=== PATIENT | female | born 1965 | race Caucasian/White ===

== ENCOUNTER → 2016-11-21 | Outpatient (CLI) | payer BC ==
[~2016-11-21] MED LIST: AMOX-CLAV PO; ANSHCCR PR; ASPCH81X PO; ATOR-22 PO; CLON1TAB3 PO; DIVA500T59 PO; FLUV50TA2 PO; IBUP-103 PO; LORA-741 PO; MIRT30TA PO; QUET1TAB7 PO; RIZA10TA18 PO; TOPI25TA55 PO; TOPI50TA25 PO
[2016-11-21 12:20] LABS: BASO % 0.5 %; BASO ABS # 0.04 K/uL (0-0.2); COMPLETE YES; EOS % 0.8 %; HEMATOCRIT 47.3 % (37-47); IG% 0.2 %; LYMPH % 45.6 %; LYMPH ABS # 3.88 K/uL (1.2-3.4); MEAN CELL VOLUME 95.6 fL (80-100); MEAN CORPUSCULAR HEMOGLOBIN 32.7 pg (25-34); MEAN CORPUSCULAR HGB CONC 34.2 g/dl (32-36); MEAN PLATELET VOLUME 10.5 fL (7.4-10.4); MONO % 5.3 %; NEUT % 47.6 %; PLATELET COUNT 222 K/uL (130-400); RED BLOOD COUNT 4.95 M/uL (4.2-5.4); WHITE BLOOD COUNT 8.51 K/uL (4.8-10.8)
[2016-11-21 13:59] LABS: ALKALINE PHOSPHATASE 102 U/L (45-117); ALT/SGPT 14 U/L (12-78); AST/SGOT 8 U/L (15-37)
== END | disposition home or self-care (01) ==
LOC: C.LAB1850 11:18
PROVIDERS: ATTEND Psychiatry & Neurology Psychiatry
DX: F31.9 Bipolar disorder, unspecified (principal)

== ENCOUNTER → 2017-04-09 | Day surgery (SDC) | payer BC ==
[2017-03-27 11:22] VITALS: BMI 24.0
[~2017-04-09] VITALS: Ht 162.6 cm; Wt 65.5 kg
[~2017-04-09] MED LIST changes: -AMOX-CLAV PO; +LIDOCAINE HCL 2% 2 ML VIAL (20MG/ML) ONE; +MIDAZOLAM HCL 1 MG/ML 2ML VIAL ONE; +ONDANSETRON INJ 2 MG/ML 2 ML VIAL ONE; +PROPOFOL IV EMULSION 10 MG/ML 20 ML VIAL IV ONE; +SODIUM CHLORIDE 0.9% 500ML 500 ML IV ONE; -TOPI25TA55 PO
[2017-04-09 13:28] VITALS: Ht 162.6 cm; Wt 65.5 kg
[2017-04-09 13:33] VITALS: TEMP 36.4
--- NOTE | 2017-04-09 14:14 | Endo History and Physical ---
History & Physical Date of Service: Apr 09, 2017. Chief Complaint: Rectal bleeding Referring Physician: Dr. Armando History of Present Illness rectal bleeding, no prior colon, painless rectal bleeding Past Surgical History Hx Cardiac Surgery: No Hx Internal Defibrillator: No Hx Pacemaker: No Hx Abdominal Surgery: Yes (C SECTION) Hx of Implantable Prosthesis: No Hx Post-Op Nausea and Vomiting: No Hx Cancer Surgery: No Hx Thoracic Surgery: No Hx Orthopedic: No Hx Urinary Tract Surgery: No Family History None Social History Smoking Status: Current Every Day Smoker Hx Substance Use: No Hx Alcohol Use: No Allergies Coded Allergies: Tramadol (Verified Allergy, Intermediate, sick, hot, 03/27/17) Naproxen (Verified Allergy, Mild, N/V, 03/27/17) Lamotrigine (Verified Allergy, Unknown, RASH, 03/27/17) Trazodone (Verified Allergy, Unknown, "Sick", 03/27/17) Codeine (Verified Adverse Reaction, Intermediate, NAUSEA AND VOMITING, ) Current Medications Reported Home Medications Medications Dose Route/Sig Max Daily Dose Days Date Category Dose Instructions Aspirin Chewable (Aspirin) 81 Mg Chew 81 Mg PO QAM 03/27/17 Reported Lipitor (Atorvastatin Calcium) 20 Mg Tab 20 Mg PO HS 03/27/17 Reported Topiramate 50 Mg Tab 50 Mg PO HS 03/27/17 Reported Ativan (Lorazepam) 0.5 Mg Tab 0.5 Mg PO DAILY PRN 06/10/14 Reported Maxalt (Rizatriptan Benzoate) 10 Mg Tab 10 Mg PO DAILY PRN 06/10/14 Reported Advil (Ibuprofen) 200 Mg Tab 400-600 Mg PO BID 06/10/14 Reported Seroquel (Quetiapine Fumarate) 25 Mg Tab 25 Mg PO HS 06/10/14 Reported Remeron (Mirtazapine) 30 Mg Tab 45 Mg PO HS 06/10/14 Reported Luvox (Fluvoxamine Maleate) 50 Mg Tab 25 Mg PO HS 06/10/14 Reported Depakote (Divalproex Sodium) 500 Mg Tab 500 Mg PO HS 06/10/14 Reported Klonopin (Clonazepam) 1 Mg Tab 1.5 Mg PO HS 06/10/14 Reported 1 and 1/5 1mg tablets Vital Signs Weight (Kilograms): 65.45 Height (Feet): 5 Height (Inches): 4 Date Time Temp Pulse Resp B/P (MAP) Pulse Ox O2 Delivery O2 Flow Rate FiO2 04/09/17 13:33 36.4 84 20 127/59 (81) 96 Room Air Physical Exam AAOx3 Nls1s2 Lungs CTA Abd soft NT/ND + BS - CCE Assessment and Plan colonoscopy
--- NOTE | 2017-04-09 14:52 | Discharge Instructions ---
Endoscopy Patient Instructions Date / Procedure(s) Performed Apr 09, 2017. Colonoscopy Allergy Information Coded Allergies: Tramadol (Verified Allergy, Intermediate, sick, hot, 03/27/17) Naproxen (Verified Allergy, Mild, N/V, 03/27/17) Lamotrigine (Verified Allergy, Unknown, RASH, 03/27/17) Trazodone (Verified Allergy, Unknown, "Sick", 03/27/17) Codeine (Verified Adverse Reaction, Intermediate, NAUSEA AND VOMITING, ) Discharge Date / Findings Apr 09, 2017. polyps, diverticulosis. hemorrhoids Medication Instructions Restart Stopped Medication(s): Reported Home Medications Medications Dose Route/Sig Max Daily Dose Days Date Category Dose Instructions Aspirin Chewable (Aspirin) 81 Mg Chew 81 Mg PO QAM 03/27/17 Reported Lipitor (Atorvastatin Calcium) 20 Mg Tab 20 Mg PO HS 03/27/17 Reported Topiramate 50 Mg Tab 50 Mg PO HS 03/27/17 Reported Ativan (Lorazepam) 0.5 Mg Tab 0.5 Mg PO DAILY PRN 06/10/14 Reported Maxalt (Rizatriptan Benzoate) 10 Mg Tab 10 Mg PO DAILY PRN 06/10/14 Reported Advil (Ibuprofen) 200 Mg Tab 400-600 Mg PO BID 06/10/14 Reported Seroquel (Quetiapine Fumarate) 25 Mg Tab 25 Mg PO HS 06/10/14 Reported Remeron (Mirtazapine) 30 Mg Tab 45 Mg PO HS 06/10/14 Reported Luvox (Fluvoxamine Maleate) 50 Mg Tab 25 Mg PO HS 06/10/14 Reported Depakote (Divalproex Sodium) 500 Mg Tab 500 Mg PO HS 06/10/14 Reported Klonopin (Clonazepam) 1 Mg Tab 1.5 Mg PO HS 06/10/14 Reported 1 and 1/5 1mg tablets Reported Home Medications Medications Dose Route/Sig Max Daily Dose Days Date Category Dose Instructions Aspirin Chewable (Aspirin) 81 Mg Chew 81 Mg PO QAM 03/27/17 Reported Lipitor (Atorvastatin Calcium) 20 Mg Tab 20 Mg PO HS 03/27/17 Reported Topiramate 50 Mg Tab 50 Mg PO HS 03/27/17 Reported Ativan (Lorazepam) 0.5 Mg Tab 0.5 Mg PO DAILY PRN 11/7/14 Reported Maxalt (Rizatriptan Benzoate) 10 Mg Tab 10 Mg PO DAILY PRN 06/10/14 Reported Advil (Ibuprofen) 200 Mg Tab 400-600 Mg PO BID 06/10/14 Reported Seroquel (Quetiapine Fumarate) 25 Mg Tab 25 Mg PO HS 06/10/14 Reported Remeron (Mirtazapine) 30 Mg Tab 45 Mg PO HS 06/10/14 Reported Luvox (Fluvoxamine Maleate) 50 Mg Tab 25 Mg PO HS 06/10/14 Reported Depakote (Divalproex Sodium) 500 Mg Tab 500 Mg PO HS 06/10/14 Reported Klonopin (Clonazepam) 1 Mg Tab 1.5 Mg PO HS 06/10/14 Reported 1 and 1/5 1mg tablets Provider Instructions Activity Restrictions - No exercising or heavy lifting for 24 hours. - Do not drink alcohol the day of the procedure. - Do not drive a car or operate machinery until the day after the procedure. - Do not make any important decisions or sign important papers in 24 hours after the procedure. Following Day: - Return to full activity which may include returning to work/school. Diet Start your diet with liquids and light foods (jello, soup, juice, toast). Then eat your usual diet if not nauseated. Treatment For Common After Affects For mild abdominal pain, bloating, or excessive gas: - Rest - Eat lightly - Lie on right side Follow-Up Information Follow-up with Dr. Armando as scheduled Anesthesia Information What You Should Know You have had a procedure that required some medicine to reduce anxiety and discomfort. This treatment is called moderate sedation. After receiving the treatment, you may be sleepy, but you will be able to breathe on your own. The effects of the treatment may last for several hours. Follow these instructions along with Activity/Diet recommendations noted above: * Do NOT do anything where dizziness or clumsiness would be dangerous. * Rest quietly at home today, then you can be up and about tomorrow. * Have a responsible person stay with you the rest of today. * You may have had an I.V. today. If so, you may take the dressing off later today. Recommendations Call your doctor if: * Trouble breathing * Continuous vomiting for more than 24 hours * Temperature above 101 degrees * Severe abdominal pain or bloating * Pain not relieved by pain medicine ordered * There is increased drainage or redness from any incision * A large amount of rectal bleeding greater than 2-3 tablespoons. (If you had a polyp/s removed or have hemorrhoids, a small amount of blood - from the rectum is to be expected.) * You have any unanswered questions or concerns. IN THE EVENT OF A SERIOUS EMERGENCY, GO TO THE NEAREST EMERGENCY ROOM Your discharge instructions were prepared by provider Joaquín Garnica. Patient Instructions Signature Page Mana Peterson Patient (or Guardian) Signature/Date: I have read and understand the instructions given to me by my caregivers. Caregiver/RN/Doctor Signature/Date: The above-named patient and/or guardian has received patient instructions on this date. + Original Patient Signature Page (only) stays with chart. Please make copy for patient.
--- NOTE | 2017-04-09 15:01 | GI REPORT ---
Procedure Date: 04/09/2017 2:00 PM Procedure: Colonoscopy Indications: Rectal bleeding Medicines: Propofol per Anesthesia Complications: No immediate complications. Estimated blood loss: Minimal. Estimated Blood Loss: Estimated blood loss was minimal. Estimated blood loss was minimal. Procedure: Pre-Anesthesia Assessment: - Prior to the procedure, a History and Physical was performed, and patient medications and allergies were reviewed. The patient's tolerance of previous anesthesia was also reviewed. The risks and benefits of the procedure and the sedation options and risks were discussed with the patient. All questions were answered, and informed consent was obtained. Prior Anticoagulants: The patient has taken no previous anticoagulant or antiplatelet agents. ASA Grade Assessment: II - A patient with mild systemic disease. After reviewing the risks and benefits, the patient was deemed in satisfactory condition to undergo the procedure. After I obtained informed consent, the scope was passed under direct vision. Throughout the procedure, the patient's blood pressure, pulse, and oxygen saturations were monitored continuously. The scope was introduced through the anus and advanced to the terminal ileum, with identification of the appendiceal orifice and IC valve. The colonoscopy was performed without difficulty. The patient tolerated the procedure well. The quality of the bowel preparation was fair. Findings: The perianal and digital rectal examinations were normal. Pertinent negatives include normal sphincter tone, no palpable rectal lesions and no anal lesion or abnormality was detected. Two sessile polyps were found in the ascending colon. The polyps were 4 to 5 mm in size. These polyps were removed with a hot snare. Resection and retrieval were complete. Estimated blood loss was minimal. Verification of patient identification for the specimen was done by the physician and digital camera technician using the patient's name and medical record number. A 3 mm polyp was found in the proximal transverse colon. The polyp was sessile. The polyp was removed with a cold biopsy forceps. Resection and retrieval were complete. Estimated blood loss was minimal. Verification of patient identification for the specimen was done by the physician and digital camera technician using the patient's name and medical record number. A 3 mm polyp was found at 30 cm proximal to the anus. The polyp was sessile. The polyp was removed with a hot snare. Resection and retrieval were complete. Estimated blood loss: none. Verification of patient identification for the specimen was done by the physician and digital camera technician using the patient's name and medical record number. A 2 mm polyp was found in the rectum. The polyp was sessile. The polyp was removed with a cold biopsy forceps. Resection and retrieval were complete. Estimated blood loss was minimal. Verification of patient identification for the specimen was done by the physician and digital camera technician using the patient's name and medical record number. Verification of patient identification for the specimen was done by the physician and digital camera technician using the patient's name and medical record number. Non-bleeding hemorrhoids were found during retroflexion. The hemorrhoids were mild. No additional abnormalities were found on retroflexion. Impression: - Two 4 to 5 mm polyps in the ascending colon, removed with a hot snare. Resected and retrieved. - One 3 mm polyp in the proximal transverse colon, removed with a cold biopsy forceps. Resected and retrieved. - One 3 mm polyp at 30 cm proximal to the anus, removed with a hot snare. Resected and retrieved. - One 2 mm polyp in the rectum, removed with a cold biopsy forceps. Resected and retrieved. Recommendation: - Discharge patient to home (ambulatory). - Patient has a contact number available for emergencies. The signs and symptoms of potential delayed complications were discussed with the patient. Return to normal activities tomorrow. Written discharge instructions were provided to the patient. - Advance diet as tolerated. - Continue present medications. - Await pathology results. - Repeat colonoscopy for surveillance based on pathology results. - Return to referring physician as previously scheduled. MD Joaquín Rod MD 04/09/2017 3:00:37 PM This report has been signed electronically. Note Initiated On: 04/09/2017 2:00 PM I attest to the content of the Intraoperative Record and orders documented therein, exceptions below
--- NOTE | 2017-04-09 15:11 | Anesthesiology Progress Note ---
Anesthesia Post Op Note Date & Time Apr 09, 2017 at 15:10 Vital Signs Pain Intensity: 0 Vital Signs Past 12 Hours Date Time Temp Pulse Resp B/P (MAP) Pulse Ox O2 Delivery O2 Flow Rate FiO2 04/09/17 14:56 68 16 100/60 (73) 95 Room Air 04/09/17 13:33 36.4 84 20 127/59 (81) 96 Room Air Notes Mental Status: alert / awake / arousable, participated in evaluation Pt Amnestic to Procedure: Yes Nausea / Vomiting: adequately controlled Pain: adequately controlled Airway Patency, RR, SpO2: stable & adequate BP & HR: stable & adequate Hydration State: stable & adequate Anesthetic Complications: no major complications apparent
[2017-04-09 15:26] VITALS: BP 116/85; PULSE 65; O2SAT 97
== END | disposition home or self-care (01) ==
LOC: C.GI 12:55
PROVIDERS: ATTEND Internal Medicine Gastroenterology
DX: D12.2 Benign neoplasm of ascending colon (principal); D12.3 Benign neoplasm of transverse colon; K62.0 Anal polyp; K62.1 Rectal polyp; K64.8 Other hemorrhoids; K62.5 Hemorrhage of anus and rectum; F17.200 Nicotine dependence, unspecified, uncomplicated; Z79.82 Long term (current) use of aspirin; Z79.899 Other long term (current) drug therapy

== ENCOUNTER → 2017-04-17 | Outpatient (CLI) | payer BC ==
[~2017-04-17] MED LIST changes: -ANSHCCR PR; -LIDOCAINE HCL 2% 2 ML VIAL (20MG/ML) ONE; -MIDAZOLAM HCL 1 MG/ML 2ML VIAL ONE; -ONDANSETRON INJ 2 MG/ML 2 ML VIAL ONE; -PROPOFOL IV EMULSION 10 MG/ML 20 ML VIAL IV ONE; -SODIUM CHLORIDE 0.9% 500ML 500 ML IV ONE
--- NOTE | 2017-04-17 11:49 | DIAGNOSTIC IMAGING REPORT ---
CHEST 2 VIEWS ROUTINE CLINICAL HISTORY: Cough. COMPARISON STUDY: Chest radiograph June 10, 2014. FINDINGS: Lung volumes are normal. No consolidation is identified. There is no pneumothorax or pleural effusion. Pulmonary vascularity is normal. Cardiomediastinal silhouette is normal. IMPRESSION: No acute cardiopulmonary findings. Electronically signed by: Maximo Martinez M.D. 04/17/2017 11:48 AM Dictated Date/Time: 04/17/2017 11:47 AM
== END | disposition home or self-care (01) ==
LOC: C.RAD1850 11:13
PROVIDERS: ATTEND Family Medicine
DX: R05 Cough (principal)

== ENCOUNTER → 2017-08-07 | Outpatient (CLI) | payer BC ==
[~2017-08-07] MED LIST changes: -CLON1TAB3 PO; +CLON1TAB4 PO
[2017-08-07 11:27] LABS: BASO % 0.3 %; BASO ABS # 0.04 K/uL (0-0.2); EOS % 0.1 %; EOS ABS # 0.01 K/uL (0-0.5); HEMATOCRIT 48.3 % (37-47); HEMOGLOBIN 17.4 g/dL (12.0-16.0); IG# 0.04 K/uL (0.00-0.02); LYMPH % 28.4 %; LYMPH ABS # 3.36 K/uL (1.2-3.4); MEAN CELL VOLUME 93.6 fL (80-100); MEAN CORPUSCULAR HEMOGLOBIN 33.7 pg (25-34); MEAN PLATELET VOLUME 11.2 fL (7.4-10.4); MONO % 11.8 %; NEUT % 59.1 %; NEUT ABS # 6.98 K/uL (1.4-6.5); PLATELET COUNT 182 K/uL (130-400); RED CELL DISTRIBUTION WIDTH CV 12.5 % (11.5-14.5); RED CELL DISTRIBUTION WIDTH SD 42.9 fL (36.4-46.3); WHITE BLOOD COUNT 11.83 K/uL (4.8-10.8)
[2017-08-07 12:31] LABS: ALBUMIN 3.5 gm/dl (3.4-5.0); ALKALINE PHOSPHATASE 101 U/L (45-117); ALT/SGPT 16 U/L (12-78); CHOLESTEROL 123 mg/dl (0-200); GLUCOSE 106 mg/dl (70-99)
[2017-08-07 12:45] LABS: AST/SGOT 11 U/L (15-37); LDL CHOLESTEROL CALCULATED 57 mg/dl; TOTAL PROTEIN 8.1 gm/dl (6.4-8.2)
== END | disposition home or self-care (01) ==
LOC: C.LAB1850 10:29
PROVIDERS: ATTEND Psychiatry & Neurology Psychiatry
DX: F31.9 Bipolar disorder, unspecified (principal); Z79.899 Other long term (current) drug therapy

== ENCOUNTER → 2017-08-11 | Outpatient (CLI) | payer BC ==
[~2017-08-11] MED LIST changes: +CLON1TAB3 PO; -CLON1TAB4 PO
--- NOTE | 2017-08-11 11:41 | DIAGNOSTIC IMAGING REPORT ---
CHEST 2 VIEWS ROUTINE HISTORY: ACUTE OBSTRUCTIVE PULMONARY DISEASE W/ ACUTE EXACERBATION COMPARISON: Chest 04/17/2017. FINDINGS: There is a new right middle lobe airspace opacity. The left lung is clear. No pleural effusions. No pneumothorax. The heart is normal in size. No pneumothorax. Suspect mild volume loss within the right hemithorax. IMPRESSION: A new right middle lobe airspace opacity with mild volume loss within the right hemithorax. Therefore, this favors partial collapse of the right middle lobe. However, a pneumonia could also a similar appearance. Given the suspected findings of partial collapse of the right middle lobe a follow-up chest CT with intravenous contrast is recommended to exclude the possibility of a central obstructing mass. Electronically signed by: Kris De La Vega M.D. 08/11/2017 11:40 AM Dictated Date/Time: 08/11/2017 11:37 AM
== END | disposition home or self-care (01) ==
LOC: C.RAD1850 11:29
PROVIDERS: ATTEND Family Medicine
DX: J44.1 Chronic obstructive pulmonary disease with (acute) exacerbation (principal)

== ENCOUNTER → 2017-08-18 | Outpatient (CLI) | payer BC ==
[~2017-08-18] MED LIST changes: +OPTIRAY 320 IV PRN
--- NOTE | 2017-08-18 16:20 | DIAGNOSTIC IMAGING REPORT ---
CHEST CT WITH CONTRAST CT DOSE: 255.11 mGycm HISTORY: Abnormal chest x-ray. Right middle Lobe opacity. TECHNIQUE: Multiaxial CT images of the chest were performed following the intravenous administration of contrast. A dose lowering technique was utilized adhering to the principles of ALARA. COMPARISON: Chest 08/11/2017. FINDINGS: The right middle lobe collapse seen on the prior study has resolved. The right middle lobe is well aerated. There is approximately 70% narrowing at the proximal 1 cm of the right middle lobe bronchus best seen on image 145 of 316. There is no surrounding soft tissue mass. Therefore, this may be congenital. Given the short resolution of the right middle lobe collapse this may have been from mucous plugging. No central obstructing masses identified. Mild emphysema. No effusions. No pneumothorax. No focal lung consolidations. No suspicious lytic or blastic osseous lesions. The visualized liver, spleen, and adrenal glands are unremarkable. The mediastinal vascular structures are within normal limits. No mediastinal or hilar lymphadenopathy. IMPRESSION: 1. Interval resolution of the right middle lobe collapse. Therefore, this favors mucous plugging. 2. However, there is approximately 70% narrowing at the proximal 1 cm of the right middle lobe bronchus which may be congenital. There is no obstructing mass identified. This should be confirmed with follow-up bronchoscopy. Electronically signed by: Kris De La Vega M.D. 08/18/2017 4:19 PM Dictated Date/Time: 08/18/2017 4:11 PM
== END ==
LOC: C.CTS 15:52
PROVIDERS: ATTEND Family Medicine
DX: R91.8 Other nonspecific abnormal finding of lung field (principal); F17.210 Nicotine dependence, cigarettes, uncomplicated

== ENCOUNTER → 2017-08-26 | Outpatient (CLI) | payer BC ==
[~2017-08-26] MED LIST changes: -OPTIRAY 320 IV PRN
--- NOTE | 2017-08-27 08:15 | PULMONARY FUNCTION TEST ---
Interpretation is based off ATS criteria. SPIROMETRY: Within normal limits. BRONCHODILATOR CHALLENGE: No significant response. LUNG VOLUMES: Within normal limits. DIFFUSION CAPACITY: Mildly reduced at 76% but correct based off alveolar volume to 97%. INTERPRETATION: Normal pulmonary function studies.
== END | disposition home or self-care (01) ==
LOC: C.RC 09:44
PROVIDERS: ATTEND Family Medicine
DX: J44.1 Chronic obstructive pulmonary disease with (acute) exacerbation (principal)

== ENCOUNTER → 2017-09-16 | Outpatient (CLI) | payer BC ==
[2017-09-16 16:48] LABS: HEMATOCRIT 45.6 % (37-47); HEMOGLOBIN 15.8 g/dL (12.0-16.0); MEAN CELL VOLUME 95.4 fL (80-100); MEAN CORPUSCULAR HEMOGLOBIN 33.1 pg (25-34); MEAN CORPUSCULAR HGB CONC 34.6 g/dl (32-36); MEAN PLATELET VOLUME 11.4 fL (7.4-10.4); PLATELET COUNT 192 K/uL (130-400); RED CELL DISTRIBUTION WIDTH SD 45.5 fL (36.4-46.3); WHITE BLOOD COUNT 9.03 K/uL (4.8-10.8)
[2017-09-16 16:56] LABS: PTT PATIENT 26.1 SECONDS (21.0-31.0)
[2017-09-16 17:04] LABS: BLOOD UREA NITROGEN 14 mg/dl (7-18); CALCIUM 8.8 mg/dl (8.5-10.1); CARBON DIOXIDE 25 mmol/L (21-32); CREATININE 0.79 mg/dl (0.60-1.20); GLUCOSE 79 mg/dl (70-99); POTASSIUM 3.9 mmol/L (3.5-5.1); SODIUM 140 mmol/L (136-145)
== END | disposition home or self-care (01) ==
LOC: C.LAB1850 15:50
PROVIDERS: ATTEND Internal Medicine Critical Care Medicine
DX: J98.59 Other diseases of mediastinum, not elsewhere classified (principal)

== ENCOUNTER → 2017-11-25 | Outpatient (CLI) | payer BC ==
[~2017-11-25] MED LIST changes: -LORA-741 PO; -QUET1TAB7 PO
--- NOTE | 2017-11-26 15:30 | MAMMOGRAPHY REPORT ---
BILATERAL DIGITAL SCREENING MAMMOGRAM TOMOSYNTHESIS WITH CAD: 11/25/2017 CLINICAL HISTORY: Routine screening. TECHNIQUE: Breast tomosynthesis in addition to standard 2D mammography was performed. Current study was also evaluated with a Computer Aided Detection (CAD) system. COMPARISON: Comparison is made to exam dated: 09/06/2009 mammogram - [facility]. BREAST COMPOSITION: There are scattered areas of fibroglandular density in both breasts. FINDINGS: The parenchymal pattern is unchanged. No developing mass, architectural distortion or clus ter of suspicious microcalcifications is seen in either breast. IMPRESSION: ACR BI-RADS CATEGORY 2: BENIGN There is no mammographic evidence of malignancy. A 1 year screening mammogram is recommended. The pa tient will receive written notification of the results. Approximately 10% of breast cancers are not detected with mammography. A negative mammographic report should not delay biopsy if a clinically suggestive mass is present. Precious Garcia M.D. ay/:11/25/2017 15:18:[address] Production: Chetan ALFARO(Alyssa)(Rubia), [facility] letter sent: Normal 1/2 BI-RADS Code: ACR BI-RADS Category 2: Benign
== END | disposition home or self-care (01) ==
LOC: C.MAMM 12:58
PROVIDERS: ATTEND Student in an Organized Health Care Education/Training Program
DX: Z12.31 Encounter for screening mammogram for malignant neoplasm of breast (principal); E28.39 Other primary ovarian failure; Z87.891 Personal history of nicotine dependence; Z78.0 Asymptomatic menopausal state

== ENCOUNTER → 2017-11-28 | Outpatient (CLI) | payer BC ==
--- NOTE | 2017-11-28 11:15 | DIAGNOSTIC IMAGING REPORT ---
PELVIC COMPLETE NON OB HISTORY: 52 years-old Female ABNORMAL UTERINE BLEEDING acute vaginal bleeding COMPARISON: None available TECHNIQUE: Multiple real-time sonographic images of the deep pelvic structures were obtained transabdominally and transvaginally assessing grayscale appearance, color and spectral flow FINDINGS: TRANSABDOMINAL: Anteflexed uterus measures 8.8 x 3.7 x 4.1 cm. Endometrium is homogeneous, 0.4 cm. Left ovary measures 1.8 x 1.8 x 1.6 cm with arterial inflow documented. Right ovary measures 1.3 x 1.7 x 1.0 cm and is unremarkable. TRANSVAGINAL: Anteflexed uterus measures 7.4 x 3.4 x 3.7 cm. The myometrium is heterogeneous. Cystic foci within the central endometrial tissues are seen measuring up to 6 mm. Questioned fibroid versus heterogeneous myometrial tissue of the lower uterine segment measures up to 1.7 cm. Intramural leiomyoma of the posterior mid uterus measures up to 9 mm nicely seen on image 61. Endometrium measures 0.6 cm. Nabothian cysts are noted. Right ovary measures 1.3 x 1.4 x 1.6 cm and is unremarkable with arterial inflow documented. Left ovary measures 2.1 x 1.2 x 1.8 cm and is also within normal limits with arterial inflow documented. Follicles are seen bilaterally. No significant free pelvic fluid. IMPRESSION: 1. Heterogeneous appearance of the uterus with intramural leiomyomas noted as above. 2. Subendometrial and nabothian cysts noted. 3. Unremarkable sonographic appearance of the ovaries without evidence of torsion. The above report was generated using voice recognition software. It may contain grammatical, syntax or spelling errors. Electronically signed by: Satish Rodriguez M.D. 11/28/2017 11:14 AM Dictated Date/Time: 11/28/2017 11:08 AM
== END | disposition home or self-care (01) ==
LOC: C.ULTR 10:14
PROVIDERS: ATTEND Student in an Organized Health Care Education/Training Program
DX: N93.9 Abnormal uterine and vaginal bleeding, unspecified (principal)

== ENCOUNTER → 2017-12-12 | Outpatient (CLI) | payer BC ==
--- NOTE | 2017-12-12 09:25 | DIAGNOSTIC IMAGING REPORT ---
ABDOMEN LIMITED (US) CLINICAL HISTORY: 52 years-old Female presenting with ABD PAIN. TECHNIQUE: Real-time grayscale and limited color Doppler ultrasound imaging of the abdomen limited to the right upper quadrant was performed. COMPARISON: CT from 05/18/2011. FINDINGS: Pancreas: Visualized portions of the pancreatic head and body normal. Liver: Mildly hyperechogenic parenchyma, although the right hemidiaphragm remains visible, likely indicating mild steatosis. The liver measures 15.8 cm in maximal sagittal dimension. No sonographic evidence of hepatic mass. Main portal vein patent with normal directional flow. Biliary: No intrahepatic biliary ductal dilatation. Common bile duct measures up to 4 mm in diameter. Gallbladder: No evidence of gallstones, gallbladder wall thickening, gallbladder distention, or pericholecystic fluid or inflammatory change. Right kidney: Normal in appearance without evidence of hydronephrosis. Ascites: None. Other: None. IMPRESSION: 1. No cholelithiasis or biliary ductal dilatation. 2. Questionable hepatic steatosis. Correlate with liver function tests to exclude steatohepatitis as a cause for abdominal pain. Electronically signed by: Yonny Vásquez M.D. 12/12/2017 9:23 AM Dictated Date/Time: 12/12/2017 9:21 AM
== END | disposition home or self-care (01) ==
LOC: C.ULTR 08:35
PROVIDERS: ATTEND Family Medicine
DX: R10.9 Unspecified abdominal pain (principal)